=== PATIENT | male | born 1990 | race Caucasian/White ===

== ENCOUNTER 2020-04-05 10:49 | Emergency (ER) | payer OTHER, SELFPAY ==
[~2020-04-05] VITALS: Ht 160 cm; Wt 98.9 kg
[2020-04-05 12:54] VITALS: Ht 160 cm; Wt 98.9 kg
[2020-04-05 13:36] VITALS: BP 132/86
== END 2020-04-05 13:36 | disposition home or self-care (01) ==
LOC: ED 10:49
DX: U07.1 COVID-19 (principal)
CPT/HCPCS: U0003-CS